=== PATIENT | male | born 1950 | race Caucasian/White ===

== ENCOUNTER 2020-11-07 06:03 | Day surgery (SDC) | payer MEDICARE ==
[2020-11-06 09:34] VITALS: BMI 33.0
[2020-11-07] MEDS ORDERED: Heparin 10,000 UNITS/ 10 ML VIAL ONE (06:44)
[2020-11-07] MEDS ORDERED: Lidocaine 1% (PF) 30 ML VIAL ONE (06:45)
[2020-11-07] MEDS ORDERED: Nitroglycerin 100MG/250ML BOT 250 ML ONE (07:33)
[2020-11-07] MEDS ORDERED: Bivalirudin 250 MG VIAL ONE (07:41)
[2020-11-07] MEDS ORDERED: Clopidogrel Bisulfate 300 MG TAB ONE (07:41)
[2020-11-07] MEDS ORDERED: Aspirin Chewable 81 MG TAB ONE (08:47)
[2020-11-07] MEDS ORDERED: Iopamidol 370 76% 50 ML VIAL FS ONE (08:50)
[2020-11-07] MEDS ORDERED: Iopamidol 370 76% 100 ML VIAL ONE (08:50)
[2020-11-07] MEDS ORDERED: cloNIDine 0.1 MG TAB ONE ×2 (10:41→13:50)
== END 2020-11-07 20:06 | disposition home or self-care (01) ==
LOC: CCL 06:03
PROVIDERS: ATTEND Internal Medicine Cardiovascular Disease
PROC: 027034Z Dilation of Coronary Artery, One Artery with Drug-eluting Intraluminal Device, Percutaneous Approach (ICD-10-PCS; principal; 2020-11-07)
PROC: 4A023N7 Measurement of Cardiac Sampling and Pressure, Left Heart, Percutaneous Approach (ICD-10-PCS; 2020-11-07)
PROC: B2111ZZ Fluoroscopy of Multiple Coronary Arteries using Low Osmolar Contrast (ICD-10-PCS; 2020-11-07)
DX: I25.10 Atherosclerotic heart disease of native coronary artery without angina pectoris (principal); I10 Essential (primary) hypertension; F17.210 Nicotine dependence, cigarettes, uncomplicated; Z79.82 Long term (current) use of aspirin; Z79.899 Other long term (current) drug therapy; Z88.0 Allergy status to penicillin
CPT/HCPCS: 76942; 85347; 92928; 93005; 93458; C1874; C9600; J0583; J1644; J2001; Q9967